=== PATIENT | female | born 1940 | race Two or more races ===

== ENCOUNTER 2018-07-20 17:30 | Inpatient (IN) | payer OTHER ==
[~2018-07-20] VITALS: Ht 167.6 cm; Wt 96.2 kg
[2018-07-20] MEDS ORDERED: NAMENDA5 MG PO (17:50)
[2018-07-20] MEDS ORDERED: NORVASC5 MG PO (17:50)
[2018-07-28] MEDS ORDERED: OXYC1TAB9 PO (14:23)
[2018-07-28] MEDS ORDERED: INTEGRA PLUS C1 EACH PO (14:23)
[2018-07-28] MEDS ORDERED: XARELTO10 MG PO (14:23)
== END 2018-07-28 20:38 | DRG 470 ==
LOC: O/R 07-25 09:45 → SURG 07-25 09:45 → RECOVERY 07-25 11:00 → SURH 07-26 01:28 → SURG 07-26 01:40
PROVIDERS: ADMIT Orthopaedic Surgery Sports Medicine
PROC: 0SRC0J9 Replacement of Right Knee Joint with Synthetic Substitute, Cemented, Open Approach (ICD-10-PCS; principal; 2018-07-25 11:00)
DX: M17.11 Unilateral primary osteoarthritis, right knee (principal); I10 Essential (primary) hypertension; E11.9 Type 2 diabetes mellitus without complications